=== PATIENT | female | born 1990 | race Caucasian/White ===

== ENCOUNTER 2019-12-28 12:29 | Emergency (ER) | payer SELFPAY ==
[~2019-12-28] VITALS: Ht 157.5 cm; Wt 75.0 kg
[2019-12-28 12:39] VITALS: BP 127/88
== END 2019-12-28 13:34 | disposition home or self-care (01) ==
LOC: EMS 12:32
DX: Z03.818 Encounter for observation for suspected exposure to other biological agents ruled out (principal); J06.9 Acute upper respiratory infection, unspecified; J45.909 Unspecified asthma, uncomplicated; F12.90 Cannabis use, unspecified, uncomplicated
CPT/HCPCS: 87635